=== PATIENT | female | born 1995 | race Caucasian/White ===

== ENCOUNTER 2019-06-09 14:22 | Emergency (ER) | payer OTHER ==
[~2019-06-09] VITALS: Ht 160 cm; Wt 73.0 kg
[2019-06-09 14:37] VITALS: BP 124/85
== END 2019-06-09 16:15 | disposition left against medical advice (07) ==
LOC: ER 14:22
DX: Z53.21 Procedure and treatment not carried out due to patient leaving prior to being seen by health care provider (principal)